=== PATIENT | male | born 1965 | race Caucasian/White ===

== ENCOUNTER → 2016-08-21 | Outpatient (CLI) | payer BC ==
[~2016-08-21] MED LIST: ANDROGEL 1.62% TD; BUDESUS NAE; CHOL100027 PO; CLON0.5T3 PO; GADAVIST IV PRN; INDO50CA97 PO; KETO10TA IM; MULT-506 PO; VITA400C3 PO; ZOLP10TA PO
--- NOTE | 2016-08-21 20:52 | DIAGNOSTIC IMAGING REPORT ---
MRI OF THE BRAIN COMBO; MRI OF THE PITUITARY GLAND CLINICAL HISTORY: Migraine headache. Endocrine abnormality. Dizziness and blurred vision. COMPARISON STUDY: CT the brain dated 05/11/2006. MRI of the brain dated 02/26/2001. TECHNIQUE: MRI of the brain was performed utilizing various T1 and T2-weighted sequences in the axial, sagittal, and coronal planes. Contrast-enhanced sequences were acquired following the administration of 11 cc of Gadavist. Additionally, high-resolution imaging of the pituitary gland is performed both pre and postcontrast. Dynamic post contrast imaging was obtained. FINDINGS: Brain parenchyma: There are scattered tiny foci of microangiopathic change. The brain parenchyma is otherwise normal in appearance. There is no hemorrhage or mass effect. There is no restricted diffusion to suggest acute ischemia. No enhancing mass lesion is identified on the postcontrast images. Chao-white matter differentiation is preserved. No extra-axial fluid collection is seen. The cerebellar tonsils are normal in configuration. Ventricles, sulci, and cisterns: Normal in configuration. Pituitary and sella: Partially empty sella is again noted. No pituitary lesion is identified on the dynamic pituitary images. The infundibulum is midline. Intracranial vasculature: Normal flow voids are maintained at the skull base. Orbits: The bony orbits are grossly intact. Orbital contents are normal in appearance. Sinuses and mastoids: There is a trace left mastoid effusion. The paranasal sinuses and the right mastoid air cells are clear. Calvarium: Unremarkable. Cervical cord: Partially visualized cervical spinal cord is normal in morphology and signal intensity. IMPRESSION: 1. No acute intracranial abnormality. 2. 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 This is similar in appearance to the 2000 examination. 3. There is no evidence of pituitary mass lesion. Electronically signed by: Toñito Rebolledo M.D. 08/21/2016 8:51 PM Dictated Date/Time: 08/21/2016 8:45 PM
== END | disposition home or self-care (01) ==
LOC: C.MRI 18:40
PROVIDERS: ATTEND Internal Medicine Endocrinology, Diabetes & Metabolism
DX: E23.0 Hypopituitarism (principal)